=== PATIENT | female | born 2000 | race Caucasian/White ===

== ENCOUNTER 2019-07-17 19:31 | Emergency (ER) | payer BC, MEDICAID ==
[2019-07-17] MEDS ORDERED: FLU Vacc QS2019-20(6MOS+)/PF 60 MCG/0.5 ML SYRINGE IM ONE (20:15)
[2019-07-17] MEDS ORDERED: Ondansetron 4 MG/2 ML SDV IVPUSH ONE (20:39)
[2019-07-17] MEDS ORDERED: Sodium Chloride 0.9% 1,000 ML IV SCH (20:45)
--- NOTE | 2019-07-17 20:46 | EDM.PDOC ---
ED HPI GENERAL MEDICAL PROBLEM - General Chief Complaint: Abdominal Pain Stated Complaint: abdominal pain Time Seen by Provider: 07/17/19 20:20 Source of Information: Reports: Patient, Significant Other (Boyfriend) History Limitations: Reports: No Limitations - History of Present Illness INITIAL COMMENTS - FREE TEXT/NARRATIVE: Ms. Rich is a most pleasant 18-year-old woman with no chronic medical issues, who states that she developed lower abdominal pain, slightly worse on the right than the left, along with nausea, this past 07/13/2019. She describes her abdominal pain as sharp in character. It waxes and wanes. It does not radiate. It is made worse with movement, coughing, or sitting upright. It feels better if she is in a recumbent or supine position. No emesis, however, she did vomit last week. No recent fever. No recent watery diarrhea, indeed, she feels she is probably constipated, therefore took a bisacodyl last night, without relief. She also reports a cough productive of clear sputum for the past 1-2 months. She is not sure if she has had any dyspnea. She has had some sinus congestion, but questionable rhinorrhea. Her LMP was 06/14/2019. The patient and her boyfriend use condoms. The patient was seen at the walk-in clinic on 07/09/2019, for gross hematuria. She had not been experiencing dysuria or urinary frequency. She states that no tests were done, but that she was prescribed an antibiotic, likely a Z-Kd, which she completed. She last ate at 19:30. The patient does not have a PCP or Molder Machine Tender. She did not receive an influenza vaccine this season, but agreed to receive one here today. Bilateral Lower Abdomen Pain Score (Numeric/FACES): 7 - Related Data Allergies Allergy/AdvReac Type Severity Reaction Status Date / Time No Known Allergies Allergy Verified 07/17/19 20:01 Home Meds: Home Meds Ondansetron [Zofran ODT] 1 tab PO Q8H PRN #10 tab.dis 07/18/19 [Rx] Past Medical History - Past Surgical History HEENT Surgical History: Reports: Myringotomy w Tube(s) (bilateral), Oral Surgery (wisdom teeth extraction) Social & Family History - Family History Family Medical History: Noncontributory - Tobacco Use Smoking Status *Q: Former Smoker Tobacco Use Within Last Twelve Months: Vaping (previous nicotine) Years of Tobacco use: 5 Packs/Tins Daily: 0.2 Month/Year Tobacco Last Used: Quit late Jun 2019 - Caffeine Use Caffeine Use: Reports: None - Alcohol Use Alcohol Use History: Yes Alcohol Use Frequency: Socially - Recreational Drug Use Recreational Drug Use: No - Living Situation & Occupation Living situation: Reports: Single, with Significant Other (Boyfriend) Occupation: Employed ([employer]) ED ROS GENERAL - Review of Systems Review Of Systems: Comprehensive ROS is negative, except as noted in HPI. ED EXAM, GI/ABD - Physical Exam Exam: See Below Exam Limited By: No Limitations General Appearance: Alert, WD/WN, No Apparent Distress Eyes: Bilateral: Normal Appearance, EOMI Ears: Normal External Exam, Hearing Grossly Normal Nose: Normal Inspection Throat/Mouth: Normal Inspection, Normal Lips, Normal Voice, No Airway Compromise Head: Atraumatic, Normocephalic Neck: Normal Inspection, Full Range of Motion Respiratory/Chest: No Respiratory Distress, Lungs Clear, Normal Breath Sounds, No Accessory Muscle Use Cardiovascular: Normal Peripheral Pulses, Regular Rate, Rhythm, No Edema, No Gallop, No JVD, No Murmur, No Rub GI/Abdominal Exam: Normal Bowel Sounds, Soft, No Organomegaly, No Distention, No Abnormal Bruit, No Mass, Tender (Lower abdomen, particularly, suprapubically , however, pain is induced in her lower abdomen with palpation anywhere else on her abdomen. Obturator sign present. Psoas sign absent. Heel drop sign present.) (Female) Exam: Deferred Rectal (Female) Exam: Deferred Back Exam: Normal Inspection, Full Range of Motion. No: CVA Tenderness (L), CVA Tenderness (R) Extremities: Normal Inspection, Normal Range of Motion, No Pedal Edema, Normal Capillary Refill Neurological: Alert, Oriented, Normal Cognition, No Motor/Sensory Deficits Psychiatric: Normal Affect Skin Exam: Warm, Dry, Intact, Normal Color, No Rash Course - Vital Signs Last Recorded V/S: Last Vital Signs Temp 36.7 C 07/17/19 19:58 Pulse 77 07/17/19 19:58 Resp 19 07/17/19 19:58 BP 137/93 H 07/17/19 19:58 Pulse Ox 94 L 07/17/19 19:58 Orthostatic Blood Pressure [ 107/71 Side, Left] Orthostatic Blood Pressure [ 119/67 Sitting] Orthostatic Blood Pressure [ 123/66 Supine] - Orders/Labs/Meds Orders: Active Orders 24 hr Category Date Time Status Influenza Vaccine Charge [RC] .DISCHARGE Care 07/17/19 20:03 Active Orthostatic Vital Signs [RC] STAT Care 07/17/19 23:33 Active Abdomen Pelvis w Cont [CT] Stat Exams 07/17/19 20:40 Taken Transvaginal Non OB [US] Stat Exams 07/18/19 00:01 Taken Sodium Chloride 0.9% [Normal Saline] 1,000 ml Med 07/17/19 20:45 Active IV ASDIRECTED Medication Orders Sodium Chloride (Normal Saline) 1,000 mls @ 150 mls/hr IV ASDIRECTED SUKUMAR Last Admin: 07/17/19 20:59 Dose: 150 mls/hr Labs: Laboratory Tests 07/17/19 07/17/19 07/17/19 Range/Units 20:40 20:47 20:55 WBC 10.35 H (3.98-10.04) K/mm3 RBC 5.02 (3.98-5.22) M/mm3 Hgb 14.8 (11.2-15.7) gm/dl Hct 43.0 (34.1-44.9) % MCV 85.7 (79.4-94.8) fl MCH 29.5 (25.6-32.2) pg MCHC 34.4 (32.2-35.5) g/dl RDW Std Deviation 39.3 (36.4-46.3) fL Plt Count 336 (182-369) K/mm3 MPV 10.3 (9.4-12.3) fl Neutrophils % (Manual) 69 H (40-60) % Band Neutrophils % 0 (0-10) % Lymphocytes % (Manual) 23 (20-40) % Atypical Lymphs % 0 % Monocytes % (Manual) 8 (2-10) % Eosinophils % (Manual) 0 L (0.7-5.8) % Basophils % (Manual) 0 L (0.1-1.2) Platelet Estimate Adequate RBC Morph Comment Normal Sodium (136-145) mEq/L Potassium (3.5-5.1) mEq/L Chloride (98-107) mEq/L Carbon Dioxide (21-32) mEq/L Anion Gap (5-15) BUN (7-18) mg/dL Creatinine (0.55-1.02) mg/dL Est Cr Clr Drug Dosing mL/min Estimated GFR (MDRD) (>60) mL/min BUN/Creatinine Ratio (14-18) Glucose (74-106) mg/dL Calcium (8.5-10.1) mg/dL Total Bilirubin (0.2-1.0) mg/dL AST (15-37) U/L ALT (14-59) U/L Alkaline Phosphatase (46-116) U/L Total Protein (6.4-8.2) g/dl Albumin (3.4-5.0) g/dl Globulin gm/dL Albumin/Globulin Ratio (1-2) Urine Color Yellow (Yellow) Urine Appearance Clear (Clear) Urine pH 7.0 (5.0-8.0) Ur Specific [place] > or = 1.030 (1.005-1.030) Urine Protein 2+ H (Negative) Urine Glucose (UA) Negative (Negative) Urine Ketones Negative (Negative) Urine Occult Blood 3+ H (Negative) Urine Nitrite Negative (Negative) Urine Bilirubin Negative (Negative) Urine Urobilinogen 0.2 (0.2-1.0) Ur Leukocyte Esterase Negative (Negative) U Hyaline Cast (Auto) 0-5 (0-5) /lpf Urine RBC 30-40 H (0-5) /hpf Urine WBC 0-5 (0-5) /hpf Ur Squamous Epith Cells 0-5 (0-5) /hpf Urine Bacteria Few (FEW) /hpf Urine Mucus Few (FEW) /hpf Urine Yeast (Budding) Rare H (NOT SEEN) Urine HCG, Qual Negative (NEGATIVE) 07/17/19 Range/Units 20:55 WBC (3.98-10.04) K/mm3 RBC (3.98-5.22) M/mm3 Hgb (11.2-15.7) gm/dl Hct (34.1-44.9) % MCV (79.4-94.8) fl MCH (25.6-32.2) pg MCHC (32.2-35.5) g/dl RDW Std Deviation (36.4-46.3) fL Plt Count (182-369) K/mm3 MPV (9.4-12.3) fl Neutrophils % (Manual) (40-60) % Band Neutrophils % (0-10) % Lymphocytes % (Manual) (20-40) % Atypical Lymphs % % Monocytes % (Manual) (2-10) % Eosinophils % (Manual) (0.7-5.8) % Basophils % (Manual) (0.1-1.2) Platelet Estimate RBC Morph Comment Sodium 138 (136-145) mEq/L Potassium 3.7 (3.5-5.1) mEq/L Chloride 101 (98-107) mEq/L Carbon Dioxide 30 (21-32) mEq/L Anion Gap 10.7 (5-15) BUN 12 (7-18) mg/dL Creatinine 0.9 (0.55-1.02) mg/dL Est Cr Clr Drug Dosing 100.58 mL/min Estimated GFR (MDRD) > 60 (>60) mL/min BUN/Creatinine Ratio 13.3 L (14-18) Glucose 74 (74-106) mg/dL Calcium 9.9 (8.5-10.1) mg/dL Total Bilirubin 0.6 (0.2-1.0) mg/dL AST 13 L (15-37) U/L ALT 25 (14-59) U/L Alkaline Phosphatase 67 (46-116) U/L Total Protein 7.8 (6.4-8.2) g/dl Albumin 3.9 (3.4-5.0) g/dl Globulin 3.9 gm/dL Albumin/Globulin Ratio 1.0 (1-2) Urine Color (Yellow) Urine Appearance (Clear) Urine pH (5.0-8.0) Ur Specific [place] (1.005-1.030) Urine Protein (Negative) Urine Glucose (UA) (Negative) Urine Ketones (Negative) Urine Occult Blood (Negative) Urine Nitrite (Negative) Urine Bilirubin (Negative) Urine Urobilinogen (0.2-1.0) Ur Leukocyte Esterase (Negative) U Hyaline Cast (Auto) (0-5) /lpf Urine RBC (0-5) /hpf Urine WBC (0-5) /hpf Ur Squamous Epith Cells (0-5) /hpf Urine Bacteria (FEW) /hpf Urine Mucus (FEW) /hpf Urine Yeast (Budding) (NOT SEEN) Urine HCG, Qual (NEGATIVE) Meds: Medications Generic Name Dose Route Start Last Admin Trade Name Freq PRN Reason Stop Dose Admin Sodium Chloride 1,000 mls @ 150 mls/hr 07/17/19 20:45 07/17/19 20:59 Normal Saline IV 150 mls/hr ASDIRECTED SUKUMAR Administration Discontinued Medications Generic Name Dose Route Start Last Admin Trade Name Freq PRN Reason Stop Dose Admin Diatrizoate Meglum/Diatrizoate Sod 90 ml 07/17/19 21:44 07/17/19 22:07 Gastrografin 37% PO 07/17/19 21:45 90 ml ONETIME ONE Administration Influenza Virus Vaccine 1 each 07/17/19 20:03 Pharmacy To Dose - Influenza Vaccine IM 07/17/19 20:04 ONETIME ONE Influenza Virus Vaccine 60 mcg 07/17/19 20:15 07/17/19 20:32 Fluzone Quad Syringe IM 07/17/19 20:16 60 mcg .ONCE ONE Administration Iopamidol 100 ml 07/17/19 21:44 07/17/19 22:07 Isovue-300 (61%) IVPUSH 07/17/19 21:45 100 ml ONETIME ONE Administration Ondansetron HCl 4 mg 07/17/19 20:39 07/17/19 20:59 Zofran IVPUSH 07/17/19 20:40 4 mg ONETIME ONE Administration - Re-Assessments/Exams Free Text/Narrative Re-Assessment/Exam: 07/17/19 20:41 As above, the patient has 3 days of lower abdominal pain, possibly slightly worse on the right than the left, and on examination, is tender in her lower abdomen, with pain induced in her lower abdomen with palpation anywhere else on her abdomen. Additionally, her obturator sign and heel drop signs are present. Her findings are concerning for appendicitis, although this could also be caused by a ruptured ovarian cyst. I think diverticulitis is highly unlikely, given young age and thin build, although colitis is a possibility. I have ordered a work-up that includes blood work, a urinalysis, a urine test , and a CT scan of her abdomen and pelvis with oral and IV contrast. In the meantime, she will be given IV fluid and IV Zofran. She declined an offer for pain medication. 07/17/19 22:27 The patient's CBC is remarkable for a WBC count elevated at 10.35, but with 0% bandemia. The remainder of her CBC is unremarkable. Her CMP is unremarkable. Her urinalysis is remarkable for 3+ occult blood and 30-40 RBCs, but is otherwise unremarkable. Her urine test is negative. The source of the patient's hematuria is unclear. She is not currently on her menstrual period, she is not complaining of flank pain, and she has no CVA tenderness to suggest a ureterolith, and the remainder of her urinalysis is not consistent with a UTI. 07/17/19 23:25 CT of the abdomen and pelvis with oral and IV contrast is read by [facility] as: 1. 6.3 x 3.7 cm RIGHT adnexal hemorrhagic cystic lesion. Further evaluation with pelvic ultrasound can be obtained as clinically indicated. 2. High attenuation free fluid within the pelvis, likely secondary to ruptured hemorrhagic cyst. 3. No CT findings of acute appendicitis. 07/17/19 23:32 Test results discussed with the patient and her boyfriend. As above, it appears the patient's pain is due to a ruptured right ovarian cyst. I recommended a transvaginal ultrasound to evaluate the extent of pelvic bleeding, and the patient agreed. I have also ordered orthostatics. 07/18/19 00:50 The patient is not orthostatic. 07/18/19 02:05 Transvaginal ultrasound is read by [facility] as: 1. No ovarian torsion. 2. 5.7 cm complex RIGHT ovarian cystic lesion, likely hemorrhagic cyst. 3. Moderate amount of free fluid within the pelvis. 07/18/19 02:[address] Leonard at 02:08. He suspects that the ovary ruptured back on 07/13/2019. As above, while there is free fluid, likely blood and other products in the pelvis, there is no evidence of continued bleeding, as the patient is hemodynamically stable, not orthostatic, and not anemic. He said that the blood already in the pelvis will eventually reabsorb, although that can take some time. She should expect to have pain for the next 1-2 weeks, and discomfort for about another week after that. The patient could be put on control pills to control ovulation, however, that would not completely eliminate the possibility of a ruptured ovarian cyst in the future. With respect to the blood in the urine, Dr. Leonard stated that blood in the pelvis can migrate across into the bladder as it is reabsorbed. For today's purposes, I will discharge the patient home, and allow her to follow-up with Dr. Leonard as an outpatient. 07/18/19 02:34 The above was discussed with the patient (her boyfriend was asleep). I am recommending that she take [id number] ibuprofen as needed for discomfort. I will submit a prescription for Zofran. The patient will receive an influenza vaccine prior to discharge. Departure - Departure Time of Disposition: 02:32 Disposition: Home, Self-Care 01 Condition: Good Clinical Impression: Rupture of cyst of right ovary - Discharge Information *PRESCRIPTION DRUG MONITORING PROGRAM REVIEWED*: Not Applicable *COPY OF PRESCRIPTION DRUG MONITORING REPORT IN PATIENT LARRY: Not Applicable Prescriptions: Ondansetron [Zofran ODT] 1 tab PO Q8H PRN #10 tab.dis PRN Reason: Nausea/Vomiting Instructions: Ovarian Cyst, [id number] Referrals: Edward Leonard MD [Physician] - Forms: ED Department Discharge, ED Return to Work/School Form Additional Instructions: You were seen in the emergency room for lower abdominal pain and nausea since 07/13/2019. Workup in the ER included blood work, a urinalysis, a urine test, positional blood pressure checks, a CT scan of your abdomen and pelvis with oral and IV contrast, and a transvaginal ultrasound. Your workup found that you have a ruptured right ovarian cyst, with blood leaking into your pelvis. Your workup indicates that you are no longer bleeding, however, you should expect that the blood in your pelvis will be irritating for 1-2 weeks, with discomfort for another week after that. Some of the blood in your pelvis has been absorbed into your bladder, causing the blood seen in your urine. We recommend that you take [id number] ibuprofen, 2-3 tablets (400-600 mg) every 8 hours, with food, as needed for discomfort. A prescription for the anti-nausea medicine Zofran has [facility] located in the [facility] across the [address] from the hospital. You may dissolve one tablet of Zofran on your tongue up to every 8 hours, as needed for nausea/vomiting. Follow-up with the Molder Machine Tender Dr. Edward Leonard, to establish him as your Molder Machine Tender. If any other problems, please do not hesitate to return to the ER. Sepsis Event Note - Evaluation Sepsis Screening Result: No Definite Risk - Focused Exam Vital Signs: Vital Signs Temp Pulse Resp BP Pulse Ox 07/17/19 19:58 36.7 C 77 19 137/93 H 94 L Date Exam was Performed: 07/18/19 Time Exam was Performed: 03:08 - My Orders Last 24 Hours: My Active Orders 07/17/19 20:03 Influenza Vaccine Charge [RC] .DISCHARGE 07/17/19 20:40 Abdomen Pelvis w Cont [CT] Stat 07/17/19 20:45 Sodium Chloride 0.9% [Normal Saline] 1,000 ml IV ASDIRECTED 07/17/19 23:33 Orthostatic Vital Signs [RC] STAT 07/18/19 00:01 Transvaginal Non OB [US] Stat - Assessment/Plan Last 24 Hours: My Active Orders 07/17/19 20:03 Influenza Vaccine Charge [RC] .DISCHARGE 07/17/19 20:40 Abdomen Pelvis w Cont [CT] Stat 07/17/19 20:45 Sodium Chloride 0.9% [Normal Saline] 1,000 ml IV ASDIRECTED 07/17/19 23:33 Orthostatic Vital Signs [RC] STAT 07/18/19 00:01 Transvaginal Non OB [US] Stat
[2019-07-17] MEDS ORDERED: Iopamidol 612 MG/ML 100 ML Bottle IVPUSH ONE (21:44)
[2019-07-17] MEDS ORDERED: Diatrizoate Meglumine/Diatrizoate Sodium 37% 120 ML Bottle PO ONE (21:44)
--- NOTE | 2019-07-18 07:28 | US ---
Pelvic ultrasound: Multiple real-time images were obtained transvaginally. Comparison: Prior CT abdomen and pelvis study of 07/17/19. Uterus is anteverted. Endometrial thickness is 1.4 cm. No myometrial abnormality is identified. Mild amount of free fluid is seen within the pelvis. Complicated right ovarian abnormality is seen measuring 5.7 x 3.2 x 3.9 cm most likely due to hemorrhagic cyst. Left ovary is within normal limits. Measurements: Uterus: Length 7.5 cm, AP height 3.5 cm, transverse width 5.6 cm Right ovary: 6.7 x 4.0 x 4.6 cm (measurements includes cyst as noted above) Left ovary: 2.9 x 1.6 x 1.9 cm Impression: 1. Probable hemorrhagic cyst within the right ovary with measurements up to 5.7 cm. Continued follow-up is recommended to make sure this resolves. 2. Free fluid within the pelvis most likely representing leaking of the cyst. 3. No additional abnormality is identified on pelvic ultrasound exam. Diagnostic code #3 This report was dictated in [place] Standard Time I agree with preliminary report from [facility], finalized on [id number], 2:36 AM Central Time
--- NOTE | 2019-07-18 08:19 | CT ---
CT abdomen and pelvis Technique: Multiple axial sections were obtained from above the dome of the diaphragm inferiorly through the pubic symphysis. Intravenous and oral contrast was utilized. Delayed images were also obtained through the bladder. Comparison: No prior abdominal imaging. Findings: Visualized lung bases show nothing acute. Liver contains no focal abnormality. Spleen appears within normal limits. Adrenal glands show no nodule. Pancreas is within normal limits. Kidneys show symmetric contrast enhancement without hydronephrosis or mass. Aorta shows no aneurysm. Gallbladder contains no calcified gallstones. No retroperitoneal adenopathy or mesenteric abnormalities are seen. No pelvic mass or adenopathy is seen. There is a cyst being seen within the right ovary measuring up to 5.9 cm. Free fluid is seen within the pelvis believed to represent leaking cyst. No additional pelvic abnormality is seen. Appendix is seen and is normal. Bone window settings were reviewed which appear within normal limits for the patient's age. Impression: 1. Cystic area within the right ovary. Free fluid within the pelvis likely representing leaking cyst. This cyst measures up to 5.9 cm. 2. No additional abnormality is appreciated on CT study of the abdomen and pelvis. Diagnostic code #3 This report was dictated in [place] Standard Time I agree with preliminary report from [facility], finalized on 07/17/19, 11:42 PM Central Time
== END 2019-07-18 03:08 | disposition home or self-care (01) ==
LOC: JD.ED 19:31
DX: N83.201 Unspecified ovarian cyst, right side (principal); Z87.891 Personal history of nicotine dependence
CPT/HCPCS: 36415; 74177; 76830; 80053; 81001; 81025; 85007; 85027; 90471; 90686; 96361; 96374; 99284; J2405; J7030; Q9963; Q9967; G0008

== ENCOUNTER 2019-12-19 22:49 | Emergency (ER) | payer BC, MEDICAID ==
--- NOTE | 2019-12-19 23:22 | EDM.PDOC ---
ED HPI GENERAL MEDICAL PROBLEM - General Chief Complaint: FIRE EATER Problem Stated Complaint: PROBLEMS WITH IUD Time Seen by Provider: 12/19/19 23:15 Source of Information: Reports: Patient History Limitations: Reports: No Limitations - History of Present Illness INITIAL COMMENTS - FREE TEXT/NARRATIVE: The patient presents with cramping and vaginal bleeding. She had an IUD put in on December 01. She has had cramping and bleeding since. Today was the worst. She had a test before they put it in and it was negative. She had intercourse since then. She has no fever, chills, cough, congestion or runny nose. Onset: Gradual Duration: Week(s): Location: Reports: Pelvis Quality: Reports: Other (cramping) Severity: Moderate Improves with: Reports: None Worsens with: Reports: None Associated Symptoms: Reports: No Other Symptoms Pelvic Pain Score (Numeric/FACES): 9 - Related Data Allergies Allergy/AdvReac Type Severity Reaction Status Date / Time No Known Allergies Allergy Verified 07/17/19 20:01 Home Meds: Home Meds One Day Vitamin 1 tab PO DAILY 12/19/19 [History] Past Medical History - Past Health History Medical/Surgical History: Denies Medical/Surgical History HEENT History: Reports: Other (See Below) Other HEENT History: gum surgery FIRE EATER History: Reports: Other (See Below) Other FIRE EATER History: IUD place 12-02-19 - Past Surgical History HEENT Surgical History: Reports: Myringotomy w Tube(s), Oral Surgery Social & Family History - Family History Family Medical History: Noncontributory - Tobacco Use Smoking Status *Q: Never Smoker - Caffeine Use Caffeine Use: Reports: None - Recreational Drug Use Recreational Drug Use: No - Living Situation & Occupation Living situation: Reports: Single, with Significant Other (Boyfriend) Occupation: Employed ([employer]) ED ROS GENERAL - Review of Systems Review Of Systems: See Below Constitutional: Reports: No Symptoms HEENT: Reports: No Symptoms Respiratory: Reports: No Symptoms Cardiovascular: Reports: No Symptoms Endocrine: Reports: No Symptoms GI/Abdominal: Reports: Abdominal Pain : Reports: Other (Pelvic pain and vaginal bleeding) ED EXAM, RENAL/ - Physical Exam Exam: See Below Exam Limited By: No Limitations General Appearance: Alert, No Apparent Distress Ears: Normal External Exam Nose: Normal Inspection Head: Atraumatic, Normocephalic Neck: Normal Inspection Respiratory/Chest: No Respiratory Distress, Lungs Clear, Normal Breath Sounds Cardiovascular: Regular Rate, Rhythm, No Edema, No Murmur GI/Abdominal: Soft, Non-Tender, No Organomegaly, No Mass Course - Vital Signs Last Recorded V/S: Last Vital Signs Temp 98.4 F 12/19/19 23:00 Pulse 84 12/19/19 23:00 Resp 20 12/19/19 23:00 BP 137/84 12/19/19 23:00 Pulse Ox 99 12/19/19 23:00 - Orders/Labs/Meds Labs: Laboratory Tests 12/19/19 Range/Units 23:29 HCG, Qual Negative (NEGATIVE) - Re-Assessments/Exams Free Text/Narrative Re-Assessment/Exam: 12/19/19 23:21 I will do a test and then try to take the IUD out. 12/20/19 00:18 Her is negative. I pulled the IUD out. I will discharge her home. Departure - Departure Time of Disposition: 00:20 Disposition: Home, Self-Care 01 Condition: Good Clinical Impression: Encounter for IUD removal - Discharge Information *PRESCRIPTION DRUG MONITORING PROGRAM REVIEWED*: Not Applicable *COPY OF PRESCRIPTION DRUG MONITORING REPORT IN PATIENT LARRY: Not Applicable Referrals: PCP,None [Primary Care Provider] - Ana Freitas MD [Physician] - 1 Week Forms: ED Department Discharge Additional Instructions: You may have some cramping and bleeding for a couple days. That should go away. Take motrin or aleve for pain. Please return if you are worse or follow up with your FIRE EATER or Dr Freitas here in town. Sepsis Event Note (ED) - Evaluation Sepsis Screening Result: No Definite Risk - Focused Exam Vital Signs: Vital Signs Temp Pulse Resp BP Pulse Ox 12/19/19 23:00 98.4 F 84 20 137/84 99
== END 2019-12-20 00:31 | disposition home or self-care (01) ==
LOC: JD.ED 22:49
DX: Z30.432 Encounter for removal of intrauterine contraceptive device (principal)
CPT/HCPCS: 36415; 84703; 99282; 99284

== ENCOUNTER 2022-10-25 01:23 | Emergency (ER) | payer BC, MEDICAID ==
[2022-10-25 02:22] LABS: APPEARANCE,URINE CLOUDY (Clear); BILIRUBIN,URINE NEGATIVE (Negative); COLOR,URINE PINK (Yellow); GLUCOSE,URINE NEGATIVE (Negative); KETONES,URINE NEGATIVE (Negative); LEUKOCYTE ESTERASE,URINE 1+ (Negative); NITRITE,URINE NEGATIVE (Negative); OCCULT BLOOD,URINE 3+ (Negative); PROTEIN,URINE 3+ (Negative)
[2022-10-25] MEDS ORDERED: Cephalexin 500 MG Cap PO ONE (02:27)
[2022-10-25 03:00] LABS: EPITHELIAL CELLS,URINE 0-5 /hpf (0-5); RBC,URINE >100 /hpf (0-5)
[2022-10-25 03:01] LABS: AMORPHOUS SEDIMENT,URINE FEW /hpf (NOT SEEN); BACTERIA,URINE FEW /hpf (FEW); MUCUS,URINE NOT SEEN /hpf (FEW)
== END 2022-10-25 02:44 | disposition home or self-care (01) ==
LOC: JD.ED 01:23
DX: N39.0 Urinary tract infection, site not specified (principal)
CPT/HCPCS: 81001; 87086; 87088; 87186; 99283; A9270